=== PATIENT | female | born 2000 | race African-American/Black ===

== ENCOUNTER 2022-04-28 05:43 | Emergency (ER) | payer MEDICAID ==
[~2022-04-28] VITALS: Ht 162.6 cm; Wt 79.7 kg
[2022-04-28 08:31] LABS: BASOPHILS % 0.2 % (0.0-2.0); EOSINOPHILS % 0.2 % (0.0-5.0); HEMATOCRIT. 36.3 % (36.0-48.0); HEMOGLOBIN. 12.4 g/dL (12.0-16.0); LYMPHOCYTES % 9.1 % (20.0-50.0); MEAN CORPUSCULAR HEMOGLOBIN 30.9 pg (28.0-32.0); MEAN CORPUSCULAR VOLUME 90.5 fL (81.0-99.0); MONOCYTES % 9.5 % (2.0-8.0); PLATELET 252 x1000/uL (130-400); RED BLOOD CELL COUNT 4.01 mill/uL (4.2-5.4); RED CELL DISTRIBUTION WIDTH 14.1 % (11.6-14.6)
[2022-04-28 08:33] LABS: CHLORIDE 105 mEq/L (98-107)
[2022-04-28] MEDS ORDERED: CEFTRIAXONE 1 G PREMIX 50 ML IV ONE (08:45)
[2022-04-28 09:45] LABS: CLARITY URINE CLOUDY (CLEAR); COLOR URINE DARK YELLOW (YELLOW); KETONES URINE 4+ (NEGATIVE); LEUKOCYTE ESTERASE URINE 1+ (NEGATIVE); NITRITE URINE NEGATIVE (NEGATIVE); OCCULT BLOOD URINE NEGATIVE (NEGATIVE); PH URINE 5.5 (4.5-8.0); PROTEIN URINE 1+ (NEGATIVE); SPECIFIC GRAVITY URINE 1.038 (1.005-1.030)
[2022-04-28 11:30] VITALS: BP 116/62
== END 2022-04-28 12:30 | disposition home or self-care (01) ==
LOC: ER 06:04
DX: O98.512 Other viral diseases complicating pregnancy, second trimester (principal); U07.1 COVID-19; O26.891 Other specified pregnancy related conditions, first trimester; I49.9 Cardiac arrhythmia, unspecified; Z3A.27 27 weeks gestation of pregnancy
CPT/HCPCS: 36415; 71045; 76805; 80053; 81003; 83690; 85025; 87040; 87426; 93005; 96365; 99285; C9803; J0696